=== PATIENT | female | born 1955 | race Hispanic/Latino ===

== ENCOUNTER 2024-10-17 20:45 | Emergency (ER) | payer BC, MEDICARE, OTHER ==
[2024-10-17 21:17] LABS: Bilirubin Negative (Negative); Blood, Urine Trace (Negative); Clarity Clear (Clear); Glucose, Urine (Dipstick) Negative (Negative); Ketone, Urine Negative (Negative); Leukocyte Trace (Negative); Nitrite Negative (Negative); Protein, Urine (Dipstick) Trace mg/dL (Neg-Trace); Specific Gravity, Urine 1.025 (1.005-1.030); Urobilinogen 0.2 mg/dL (Less than 2); pH, Urine 6.5 (5.0-9.0)
[2024-10-17 21:26] LABS: CAUTI Indications for Culture Dysuria,urgency,freq; RBC/HPF 0-3 HPF (0-3)
[2024-10-17 21:27] LABS: Bacteria/HPF 1+ HPF (None Seen)
[2024-10-17 21:28] LABS: Urine Culture Reflex No No
[2024-10-17] MEDS ORDERED: Amoxicillin/Potassium Clav 875 MG TAB ONE (21:36)
== END 2024-10-17 21:42 | disposition home or self-care (01) ==
LOC: BURERS 20:45
DX: N39.0 Urinary tract infection, site not specified (principal)
CPT/HCPCS: 81001; 99284